=== PATIENT | male | born 1930 | race Caucasian/White ===

== ENCOUNTER → 2017-06-20 | Outpatient (CLI) | payer MEDICARE, BC ==
--- NOTE | 2017-06-21 07:11 | HKNOTE ---
DATE OF SERVICE: 06/20/2017 CHIEF COMPLAINT: Left knee pain. HISTORY OF PRESENT ILLNESS: Mr. George is an 87-year-old male who had a previous left total knee arthroplasty performed by the [facility] approximately 15 to 20 years ago. He is complaining of increasing pain in the left knee. He has been attending physical therapy. He has occasional in stability of the left knee. He does not use any assistive devices. He is very active. He denies a ny recent infections. He does not require any pain medications. He denies any history of trauma. He has no other complaints. GAIT: Nonantalgic gait, reciprocal gait pattern. LEFT KNEE EXAMINATION: Incision: Healed anterior midline incision, no effusion. 0 to 120 degrees range of motion and stable to varus and valgus stress, negative anterior drawer, negative posterior drawer. X-RAYS LEFT KNEE: Four views of the left knee demonstrate a cruciate retaining cemented prosthesis. There appears to be loosening of the femoral component. There is evidence of patella baja, with a thin shell of patella. There are no fractures. IMPRESSION: An 87-year-old male with previous left total knee arthroplasty and acute pain. PLAN: I discussed x-ray findings with Mr. George. I explained to him that there appears to be l oosening of the femoral component. I discussed treatment options. At this time, he is not interest ed in surgical intervention. He can take pain medications as needed. He will continue outpatient p hysical therapy. He will follow up with me as needed in the future. Dictated By: MIHAI ROBBINS/NIKITA Conf#: [id number] DID#: [id number]
--- NOTE | 2017-06-21 19:02 | RADRPT ---
PROCEDURE: XR Knee. CLINICAL INDICATION: Pain. TECHNIQUE: Left knee x-rays, 3 weightbearing views. COMPARISON: 08/04/2011. FINDINGS: Bones: Bone density appears slightly decreased. Bony cortices are intact. Knee arthroplasty hardware is in place. There is increased separation of the femoral component from the anterior margin of the distal femur measuring approximately 3 mm. There is no underlying osseous erosion. There is increas ed lucency adjacent to the femoral condylar component. The tibial component is grossly unremarkable. Joint(s): The knee joint is intact. There is no evidence of large joint effusion. Soft tissues: Scattered mild heterotopic ossification is present. IMPRESSION: Left knee arthroplasty with mild increased separation of the femoral component from the anterior mar gin of the distal femur measuring approximately 3 mm. There is also increased lucency adjacent to th e femoral condylar component. RPTAT: [facility] .Gisele Mohr MD, Date Time Electronically viewed and signed by .Gisele Mohr MD, on 06/21/2017 19:01 .T/
== END | disposition home or self-care (01) ==
LOC: HKI 10:33
PROVIDERS: ATTEND Orthopaedic Surgery Adult Reconstructive Orthopaedic Surgery
DX: M25.562 Pain in left knee (principal); Z96.652 Presence of left artificial knee joint
CPT/HCPCS: 73562; G0463